=== PATIENT | male | born 1945 | race Caucasian/White ===

== ENCOUNTER 2019-02-26 13:07 | Observation (INO) | payer OTHER ==
[~2019-02-26] VITALS: Ht 175.3 cm; Wt 106.5 kg
[2019-02-26] MEDS ORDERED: ALOGLIPTIN12.5 MG PO (13:17)
[2019-02-26] MEDS ORDERED: CARV3.125 PO (13:18)
[2019-02-26] MEDS ORDERED: CHLO25B PO (13:18)
[2019-02-26] MEDS ORDERED: ELIQUIS2.5 MG PO (13:18)
[2019-02-26] MEDS ORDERED: Fosinopril Sodi40 MG PO (13:19)
[2019-02-26] MEDS ORDERED: FLUO.01TC (13:19)
[2019-02-26] MEDS ORDERED: BASAGLAR K100 UNIT/1 SC (13:19)
[2019-02-26] MEDS ORDERED: OMEPRAZOLE20 MG PO (13:20)
[2019-02-26] MEDS ORDERED: NIFE90ER PO (13:20)
[2019-02-26] MEDS ORDERED: Zocor20 MG PO (13:21)
[2019-02-26 14:47] LABS: Hematocrit 27.6 % (37.0-53.0)
[2019-02-26] MEDS ORDERED: CETI5 PO (16:51)
[2019-02-26] MEDS ORDERED: ACET500 PO (16:52)
[2019-02-26] MEDS ORDERED: ONE DAILY COMP1 EACH PO (17:40)
[2019-02-26] MEDS ORDERED: CHOL10002 PO (17:41)
[2019-02-26 18:24] LABS: Hematocrit 28.2 % (37.0-53.0); Hemoglobin 9.2 g/dL (13.5-17.5)
--- NOTE | 2019-02-26 19:16 | NUR ---
shift summary new admit this evening. patient settled into room. denies nausea and shortness of breath. denies abdominal pain but was medicated x 1 for chronic back and shoulder pain. patient up sba to br and using urinal at bedside. call light in reach.
[2019-02-27 00:39] LABS: Hematocrit 27.1 % (37.0-53.0); Hemoglobin 8.8 g/dL (13.5-17.5)
--- NOTE | 2019-02-27 06:17 | NUR ---
SHIFT SUMMARY: DRAKE WAS PLEASANT AND COOPERATIVE ALL SHIFT. HE HAS BEEN NPO UNITL DR. PEARSON CAME AND SAW HIM EARLY IN THE MORNING. DR PEARSON GAVE AN ORDER TO HAVE HIM ON WATER UNTIL 5AM WHEN HE IS SUPPOSE TO HAVE HIS BLOOD PRESSURE MEDS EARLY ONLY WITH SOME WATER THEN NPO AFTER THAT. TO HOLD ALL OTHER MEDS UNTIL HE HAS RETURNED FROM PROCEDURE, NOT TO GIVE HIS BLOOD SUGAR MEDS. HIS BLOOD SUGAR WAS 78 THEREFORE HELD LANTUS AND CALLED THE DOCTOR WHO PUT HIM ON Q 6 HR BLOOD SUGAR CHECK, AND HE STAYED RIGHT AROUND THAT. HE DENIED ANY PAIN OR DISCOMFORT OTHER THEN HIS SIATICIA WHICH A HEATING PAD WAS GIVEN. HE SLEPT OFF AND ON THROUGHOUT THE NIGHT WITH IV INFUSING HIS PROTONICS AND FLUIDS. MEDS WERE GIVEN PER ORDERS AND EMAR. NO OTHER ACUTE CHANGES OCCURED. WILL REPORT TO DAY SHIFT RN.
[2019-02-27 06:28] LABS: BASOPHILS ABSOLUTE AUTO 0.02 K/mm3 (0.00-0.23); BASOPHILS PERCENT AUTO 0 % (0-2); EOSINOPHILS ABSOLUTE AUTO 0.05 K/mm3 (0.00-0.68); EOSINOPHILS PERCENT AUTO 1 % (0-6); Hematocrit 27.1 % (37.0-53.0); Hemoglobin 8.6 g/dL (13.5-17.5); IMMATURE GRAN ABSOLUTE AUTO 0.03 K/mm3 (0.00-0.10); IMMATURE GRAN PERCENT AUTO 0 % (0-1); LYMPHOCYTES ABSOLUTE AUTO 1.32 K/mm3 (0.84-5.20); LYMPHOCYTES PERCENT AUTO 16 % (21-46); MONOCYTES ABSOLUTE AUTO 0.39 K/mm3 (0.16-1.47); MONOCYTES PERCENT AUTO 5 % (4-13); Mean Corpuscular HGB 28.7 pg (26.0-34.0); Mean Corpuscular HGB Conc 31.7 g/dL (31.5-36.5); Mean Corpuscular Volume 90 fL (80-100); NEUTROPHILS ABSOLUTE AUTO 6.32 K/mm3 (1.96-9.15); NEUTROPHILS PERCENT AUTO 78 % (41-73); Platelet Count 99 K/mm3 (150-400); RDW Coefficient Variation 14.4 % (11.7-14.2); RDW Standard Deviation 47.1 fL (35.1-46.3); White Blood Cell Count 8.13 K/mm3 (4.00-11.30)
[2019-02-27 06:30] LABS: Mean Platelet Volume 14.2 fL (9.1-12.4)
[2019-02-27 06:41] LABS: International Normalized Ratio 1.04
[2019-02-27 06:49] LABS: Albumin, Blood 2.9 g/dL (3.4-5.0); Bilirubin, Total 0.4 mg/dL (0.1-1.0); Bun/Creatinine Ratio 21.3 (12.0-20.0); Calcium, Blood 7.7 mg/dL (8.5-10.1); Creatinine, Blood 1.5 mg/dL (0.60-1.20); Globulin, Blood 2.8 g/dL (2.2-4.0); Potassium, Blood 3.3 mmol/L (3.5-5.5); Total Protein, Blood 5.7 g/dL (6.4-8.2)
--- NOTE | 2019-02-27 10:23 | NUR ---
PATIENT DID NOT EAT BREAKFAST THIS SHIFT DUE TO BEING NPO AT THIS TIME.
[2019-02-27 13:00] LABS: Hematocrit 27.1 % (37.0-53.0); Hemoglobin 8.6 g/dL (13.5-17.5)
--- NOTE | 2019-02-27 14:28 | NUR ---
History, Chart, Medications and Allergies reviewed before start of procedure. Lungs clear T/O to Auscultation. Patient confirms NPO status and agrees with scheduled surgery. Pre-Op teaching done. Pt verbalizes understanding. Daughter in pt's room on surgical floor, communicated to pt's that he was leaving the room for the procedure.
--- NOTE | 2019-02-27 14:53 | NUR ---
02/27/19 1453 Rashaad Edmondson History, Chart, Medications and Allergies reviewed before start of procedure.MONITOR INTACT WITH CONTINUOUS PULSE OXIMETRY AND INTERMITTENT BP.3-LEAD EKG REVIEWED WITH PHYSICIAN PRIOR TO START OF PROCEDURE.O2 VIA N/C INTACT THROUGHOUT SEDATION/PROCEDURE. Patient confirms NPO status and agrees with scheduled surgery.See Anesthesia record.
--- NOTE | 2019-02-27 19:49 | NUR ---
shift summary no acute changes. patient denies pain, nausea, and shortness of breath. patient had upper endoscopy today. 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 patient tolerating regular diet well after procedure. patient up sba to br for safety and uses urinal at bedside. call light in reach.
[2019-02-28 04:41] LABS: BASOPHILS PERCENT AUTO 0 % (0-2); EOSINOPHILS ABSOLUTE AUTO 0.05 K/mm3 (0.00-0.68); EOSINOPHILS PERCENT AUTO 1 % (0-6); Hematocrit 27.3 % (37.0-53.0); Hemoglobin 8.9 g/dL (13.5-17.5); IMMATURE GRAN ABSOLUTE AUTO 0.01 K/mm3 (0.00-0.10); IMMATURE GRAN PERCENT AUTO 0 % (0-1); LYMPHOCYTES ABSOLUTE AUTO 1.22 K/mm3 (0.84-5.20); LYMPHOCYTES PERCENT AUTO 25 % (21-46); MONOCYTES ABSOLUTE AUTO 0.43 K/mm3 (0.16-1.47); MONOCYTES PERCENT AUTO 9 % (4-13); Mean Corpuscular HGB 29.1 pg (26.0-34.0); Mean Corpuscular HGB Conc 32.6 g/dL (31.5-36.5); Mean Corpuscular Volume 89 fL (80-100); NEUTROPHILS ABSOLUTE AUTO 3.12 K/mm3 (1.96-9.15); NEUTROPHILS PERCENT AUTO 65 % (41-73); Platelet Count 92 K/mm3 (150-400); RDW Coefficient Variation 14.2 % (11.7-14.2); RDW Standard Deviation 45.9 fL (35.1-46.3); Red Blood Cell Count 3.06 M/mm3 (4.30-5.90); White Blood Cell Count 4.83 K/mm3 (4.00-11.30)
[2019-02-28 05:03] LABS: Bun/Creatinine Ratio 23.9 (12.0-20.0); Calcium, Blood 7.7 mg/dL (8.5-10.1); Creatinine, Blood 1.38 mg/dL (0.60-1.20); Potassium, Blood 3.6 mmol/L (3.5-5.5)
--- NOTE | 2019-02-28 05:30 | NUR ---
SHIFT SUMMARY: DRAKE HAS BEEN PLEASANT AND COOPERATIVE THIS SHIFT. INDEPENDANT IN THE ROOM WITH NO PAIN OR DISCOMFORT. NO BLOODY STOOLS HAVE BEEN REPORTED. URINATING WELL THROUGHOUT THE NIGHT. IV INFUSING WITH NO DIFFICULIES. DENIED ANY NAUSEA OR ABDOMINAL PAIN. BLOOD SUGAR 187. VITALS WNL. NO OTHER ACUTE CHANGES TO NOTE THIS SHIFT. WILL REPORT TO DAY SHIFT RN.
[2019-02-28] MEDS ORDERED: FAMO20 PO (11:12)
--- NOTE | 2019-02-28 11:14 | NUR ---
PT QUITE PLEASANT COOP A/O. DENIES PAIN EXCEPT SCIATIA ON LEFT LEG. PAIN CANE STRIPPER. H/R REG, NO MURMER NOTED. NO TELE. LUNGS CLEAR, RESP EASY UNLABORED. ON R.A. BT X4 LAST BM THIS AM. BLACK TARRY. VOIDS BATHROOM. BED IN LOW POSITION CALL LITE IN REACH, CALLS APPROP
--- NOTE | 2019-02-28 12:23 | NUR ---
DISCHARGE REVIEWED WITH PT AND . PT VERBALIZED UNDERSTANDING OF MEDS AND INSTRUCTIONS. IV PULLED INTACT. NO TELE. WILL EAT AND DRESS THEN READY TO GO.
--- NOTE | 2019-02-28 12:59 | NUR ---
PT OUT DOOR WITH TRANSPORT AT 1250
== END 2019-02-28 12:50 | disposition home or self-care (01) ==
LOC: ER 13:07 → ERHOLD 13:08 → MEDS 13:08
PROVIDERS: Emergency Medicine; Internal Medicine Gastroenterology; ADMIT Internal Medicine
PROC: 0DJ08ZZ Inspection of Upper Intestinal Tract, Via Natural or Artificial Opening Endoscopic (ICD-10-PCS; principal; 2019-02-27 14:45)
DX: K22.10 Ulcer of esophagus without bleeding (principal); T45.515A Adverse effect of anticoagulants, initial encounter; I12.9 Hypertensive chronic kidney disease with stage 1 through stage 4 chronic kidney disease, or unspecified chronic kidney disease; E11.22 Type 2 diabetes mellitus with diabetic chronic kidney disease; N18.4 Chronic kidney disease, stage 4 (severe); E87.6 Hypokalemia; I25.10 Atherosclerotic heart disease of native coronary artery without angina pectoris; I48.2 Chronic atrial fibrillation; G47.30 Sleep apnea, unspecified; E78.5 Hyperlipidemia, unspecified; Z79.899 Other long term (current) drug therapy; Z99.89 Dependence on other enabling machines and devices; Z98.84 Bariatric surgery status
CPT/HCPCS: 36415; 80048; 80053; 82947; 85014; 85018; 85025; 85610; 86850; 86900; 86901; 94640; 94660; 94762; 96361; 96365; 96376; 99285; A9270; C9113; G0378; J7030; J7120

== ENCOUNTER 2024-11-14 14:51 | Emergency (ER) | payer OTHER, MEDICARE ==
[~2024-11-14] VITALS: Ht 177.8 cm; Wt 82.1 kg
[~2024-11-14 14:51] MED LIST: ACET500 PO; ALOGLIPTIN6.25 M1 PO; ATOR40TA PO; BASAGLAR K100 UNIT/1 SC; BUME2 PO; CALC.25 PO; CARV3.125 PO; CETI5 PO; CHLO25B PO; DRAMAMINE25 M1 PO; ELIQUIS5 M2 PO; FAMO20 PO; FERSU300 PO; FLUO.01TC; Fosinopril Sodi40 MG PO; JARDIANCE25 MG PO; KETO15TC TOP; Lisinopril2.5 MG PO; MELA3 PO; METO100ER PO; NIFE90ER PO; OMEPRAZOLE20 MG PO; ONE DAILY COMP1 EACH PO; POTA10T PO; PROCRIT40000 UNIT SC; SPIR25 PO; VITAMIN D32000 UNI1 PO; Zocor20 MG PO
[2024-11-14] MEDS ORDERED: OMEP20ER (15:19)
[2024-11-14] MEDS ORDERED: OZEMPIC0.25 MG/02 (15:20)
[2024-11-14] MEDS ORDERED: ENTRESTO 24 MG1 EACH (15:21)
[2024-11-14] MEDS ORDERED: EPLE25 (15:21)
[2024-11-14] MEDS ORDERED: MIDO5 (15:22)
[2024-11-14] MEDS ORDERED: Ondansetron HCl 2 MG / ML 2ML Vial IV ONE (15:30)
[2024-11-14] MEDS ORDERED: Prochlorperazine Edisylate 10 mg Vial IV ONE (15:55)
[2024-11-14 16:07] LABS: BASOPHILS ABSOLUTE AUTO 0.01 K/mm3 (0.00-0.23); BASOPHILS PERCENT AUTO 0 % (0-2); EOSINOPHILS ABSOLUTE AUTO 0.01 K/mm3 (0.00-0.68); EOSINOPHILS PERCENT AUTO 0 % (0-6); Hematocrit 35.7 % (37.0-53.0); Hemoglobin 12.1 g/dL (13.5-17.5); IMMATURE GRAN ABSOLUTE AUTO 0.01 K/mm3 (0.00-0.10); IMMATURE GRAN PERCENT AUTO 0 % (0-1); LYMPHOCYTES ABSOLUTE AUTO 0.66 K/mm3 (0.84-5.20); LYMPHOCYTES PERCENT AUTO 10 % (21-46); MONOCYTES ABSOLUTE AUTO 0.17 K/mm3 (0.16-1.47); MONOCYTES PERCENT AUTO 3 % (4-13); Mean Corpuscular HGB 31.5 pg (26.0-34.0); Mean Corpuscular HGB Conc 33.9 g/dL (31.5-36.5); Mean Corpuscular Volume 93 fL (80-100); NEUTROPHILS ABSOLUTE AUTO 5.89 K/mm3 (1.96-9.15); NEUTROPHILS PERCENT AUTO 87 % (41-73); Platelet Count 69 K/mm3 (150-400); RDW Coefficient Variation 13.4 % (11.7-14.2); RDW Standard Deviation 45.6 fL (35.1-46.3); Red Blood Cell Count 3.84 M/mm3 (4.30-5.90); White Blood Cell Count 6.75 K/mm3 (4.00-11.30)
[2024-11-14] MEDS ORDERED: Human Prothrombin Complx(Pcc) 2,000 UNIT in Water For Injection,Sterile 80 ML IV ONE (16:20)
[2024-11-14] MEDS ORDERED: levETIRAcetam 1,000 MG in NS 100 ML IV ONE (16:35)
[2024-11-14 16:48] LABS: Albumin, Blood 3.8 g/dL (3.4-5.0); Albumin/Globulin Ratio 1.5 (0.8-1.8); Bilirubin, Total 0.9 mg/dL (0.1-1.0); Bun/Creatinine Ratio 18.1 (12.0-20.0); Calcium, Blood 7.8 mg/dL (8.5-10.1); Creatinine, Blood 2.1 mg/dL (0.60-1.20); Globulin, Blood 2.6 g/dL (2.2-4.0); Potassium, Blood 3.4 mmol/L (3.5-5.5); Total Protein, Blood 6.4 g/dL (6.4-8.2)
[2024-11-14 17:00] VITALS: BP 137/72
== END 2024-11-14 19:43 | disposition short-term general hospital (02) ==
LOC: ER 14:51
PROVIDERS: Student in an Organized Health Care Education/Training Program
DX: S06.6X0A Traumatic subarachnoid hemorrhage without loss of consciousness, initial encounter (principal); S06.5X0A Traumatic subdural hemorrhage without loss of consciousness, initial encounter; S02.119A Unspecified fracture of occiput, initial encounter for closed fracture; W01.198A Fall on same level from slipping, tripping and stumbling with subsequent striking against other object, initial encounter; E78.5 Hyperlipidemia, unspecified; I12.9 Hypertensive chronic kidney disease with stage 1 through stage 4 chronic kidney disease, or unspecified chronic kidney disease; E11.22 Type 2 diabetes mellitus with diabetic chronic kidney disease; N18.9 Chronic kidney disease, unspecified; Z91.041 Radiographic dye allergy status; Z79.899 Other long term (current) drug therapy; Z79.01 Long term (current) use of anticoagulants; Z79.4 Long term (current) use of insulin; Z95.0 Presence of cardiac pacemaker; Z87.891 Personal history of nicotine dependence
CPT/HCPCS: 70450; 72125; 80053; 83690; 84484; 85025; 93005; 93010; 96374; 96375; 99285-25; J0780; J1953; J2405; J7168